=== PATIENT | male | born 1945 | race Caucasian/White ===

== ENCOUNTER 2021-02-23 16:09 | Inpatient (IN) ==
[2021-02-23] MEDS ORDERED: ONDANSETRON 4 MG/2 ML VIAL IV STA (16:58)
[2021-02-23] MEDS ORDERED: SODIUM CHLORIDE 0.9% 1,000 ML IV STA (16:58)
[2021-02-23 18:04] LABS: Basophils % 0.2 % (0.0-0.8); Eosinophils % 0.5 % (0.00-10.9); Hematocrit 42.6 VOL% (42.0-52.0); Hemoglobin 13.7 GM/DL (14.0-18.0); Immature Granulocytes % 1.3 %; Immature Granulocytes Absolute 0.11 #; Lymphocytes # 0.8 10*3/uL (1.4-4.0); Lymphocytes % 9.2 % (21.2-54.2); Mean Corpuscular HGB Conc 32.2 GM/DL (32-36); Mean Corpuscular Volume 88.2 FL (87-102); Mean Platelet Volume 9.5 FL (9.6-12.0); Monocytes % 5.5 % (1.7-12.7); Neutrophils % 83.3 % (38.7-73.9); Platelet Count 186 T/CUMM (130-400); Red Blood Count 4.83 MC/CUMM (3.8-5.5); Red Cell Distribution Width 14.5 % (9.3-17.3); White Blood Count 8.6 T/CUMM (4-12)
[2021-02-23 18:11] LABS: Bacteria,Urine Occasional /HPF (Few); Bilirubin,Urine Negative (Negative); Blood, Urine Negative (Negative); Glucose,Urine (UA) >=500 mg/dL (Negative); Ketones,Urine 80 mg/dL (Negative); Mucus,Urine Occasional /LPF (Occasional); Nitrite,Urine Negative (Negative); Protein,Urine Negative; Urine Appearance CLEAR (Clear); Urine Color BLUE (Yellow); Urine Specific Gravity 1.026 (1.001-1.035); Urine Urobilinogen < 2.0 EU/DL (0.2-1.0)
[2021-02-23 18:15] LABS: INR 1.1; PT Patient Result 12.4 SECS (10.5-12.0); Partial Thromboplastin Time 26.9 SECS (23.9-33.8)
[2021-02-23 18:21] LABS: Alanine Aminotransferase 20 U/L (16-61); Albumin 3.4 G/DL (3.4-5.0); Alkaline Phosphatase 680 U/L (45-117); Amylase 52 U/L (25-115); Aspartate Amino Transferase 10 U/L (0-37); Blood Urea Nitrogen 21 MG/DL (7-18); Calcium 9.5 MG/DL (8.5-10.1); Carbon Dioxide 20 MMOL/L (21-32); Estimated Glom Filtration Rate 74 ML/MIN; Glucose 101 MG/DL (74-106); Osmolality,Calculated 279.5 MOS/KG (273-304); Potassium 3.9 MMOL/L (3.5-5.1); Sodium 139 MMOL/L (136-145); Total Protein 7.4 G/DL (6.4-8.2)
[2021-02-23] MEDS ORDERED: DEXTROSE 50% 25 GM/50 ML VIAL IV PRN (19:59)
[2021-02-23] MEDS ORDERED: SIMETHICONE CHEW 125 MG TABLET PO PRN (19:59)
[2021-02-23] MEDS ORDERED: DOCUSATE SODIUM 100 MG CAPSULE PO PRN (19:59)
[2021-02-23] MEDS ORDERED: GLUCAGON 1 MG VIAL IM PRN (19:59)
[2021-02-23] MEDS: SODIUM CHLORIDE 0.9% 1,000 ML IV SCH ×2 (21:00→23:10)
[2021-02-23] MEDS: INSULIN REGULAR 100 UNIT/ML SUBCUT SCH (22:21)
[2021-02-24 05:58] LABS: Basophils % 0.3 % (0.0-0.8); Eosinophils % 0.5 % (0.00-10.9); Hematocrit 40.7 VOL% (42.0-52.0); Hemoglobin 12.8 GM/DL (14.0-18.0); Immature Granulocytes % 1.3 %; Immature Granulocytes Absolute 0.11 #; Lymphocytes % 11.8 % (21.2-54.2); Mean Corpuscular HGB Conc 31.4 GM/DL (32-36); Mean Corpuscular Volume 91.3 FL (87-102); Mean Platelet Volume 9.4 FL (9.6-12.0); Monocytes % 6.8 % (1.7-12.7); Neutrophils % 79.3 % (38.7-73.9); Platelet Count 167 T/CUMM (130-400); Red Blood Count 4.46 MC/CUMM (3.8-5.5); Red Cell Distribution Width 14.4 % (9.3-17.3); White Blood Count 8.7 T/CUMM (4-12)
[2021-02-24] MEDS: SODIUM CHLORIDE 0.9% 1,000 ML IV SCH ×3 (06:16→15:02)
[2021-02-24 06:19] LABS: Calcium 9.3 MG/DL (8.5-10.1); Osmolality,Calculated 282.3 MOS/KG (273-304); Potassium 4.5 MMOL/L (3.5-5.1); Risk Ratio 3.17; Thyroid Stimulating Hormone 1.36 uIU/ml (0.358-3.74); VLDL Cholesterol 18.6 MG/DL
[2021-02-24] MEDS: INSULIN REGULAR 100 UNIT/ML SUBCUT SCH ×4 (08:08→20:42)
[2021-02-24] MEDS: ONDANSETRON 4 MG/2 ML VIAL IV PRN (08:52)
[2021-02-24] MEDS: PANTOPRAZOLE 40 MG TABLET PO SCH (09:05)
[2021-02-24] MEDS ORDERED: ALPRAZolam 0.25 MG TABLET PO PRN (15:17)
[2021-02-24] MEDS ORDERED: tiZANidine 4 MG TABLET PO PRN (15:17)
[2021-02-24] MEDS ORDERED: HYDROmorphone 2 MG/1 ML VIAL IV PRN (15:18)
[2021-02-24] MEDS: LACTATED RINGERS 1,000 ML IV SCH (17:48)
[2021-02-24] MEDS: TAMSULOSIN 0.4 MG CAPSULE PO SCH (20:38)
[2021-02-24] MEDS: CARBIDOPA/LEVODOPA 25-100 MG TABLET PO SCH (20:39)
[2021-02-25] MEDS: LACTATED RINGERS 1,000 ML IV SCH ×2 (03:32→16:16)
[2021-02-25 06:22] LABS: Basophils % 0.2 % (0.0-0.8); Eosinophils # 0.1 10*3/uL (0.0-0.87); Eosinophils % 1.5 % (0.00-10.9); Hematocrit 35.6 VOL% (42.0-52.0); Hemoglobin 11.4 GM/DL (14.0-18.0); Immature Granulocytes % 0.8 %; Immature Granulocytes Absolute 0.07 #; Lymphocytes # 0.9 10*3/uL (1.4-4.0); Lymphocytes % 11.1 % (21.2-54.2); Mean Corpuscular Volume 88.6 FL (87-102); Mean Platelet Volume 9.5 FL (9.6-12.0); Monocytes % 6.8 % (1.7-12.7); Neutrophils % 79.6 % (38.7-73.9); Platelet Count 153 T/CUMM (130-400); Red Blood Count 4.02 MC/CUMM (3.8-5.5); Red Cell Distribution Width 14.6 % (9.3-17.3); White Blood Count 8.4 T/CUMM (4-12)
[2021-02-25 06:41] LABS: Calcium 8.5 MG/DL (8.5-10.1); Osmolality,Calculated 274.7 MOS/KG (273-304); Potassium 3.7 MMOL/L (3.5-5.1)
[2021-02-25] MEDS ORDERED: MAGNESIUM SULF RIDER 4 GM/100 ML PREMIX IV PRN (07:16)
[2021-02-25] MEDS ORDERED: MAGNESIUM SULF RIDER 2 GM/50 ML PREMIX IV PRN (07:16)
[2021-02-25] MEDS: INSULIN REGULAR 100 UNIT/ML SUBCUT SCH ×4 (08:12→20:54)
[2021-02-25] MEDS ORDERED: MELOXICAM 7.5 MG TABLET PO SCH (09:00)
[2021-02-25] MEDS ORDERED: BREXPIPRAZOLE 1 MG PO SCH (09:00)
[2021-02-25] MEDS: SERTRALINE 100 MG TABLET PO SCH (09:21)
[2021-02-25] MEDS: PANTOPRAZOLE 40 MG TABLET PO SCH (09:22)
[2021-02-25] MEDS: TAMSULOSIN 0.4 MG CAPSULE PO SCH ×2 (09:22→20:54)
[2021-02-25] MEDS: ONDANSETRON 4 MG/2 ML VIAL IV PRN (09:22)
[2021-02-25] MEDS: BICALUTAMIDE 50 MG TABLET PO SCH (09:22)
[2021-02-25] MEDS: ATORVASTATIN 20 MG TABLET PO SCH (09:22)
[2021-02-25] MEDS: CARBIDOPA/LEVODOPA 25-100 MG TABLET PO SCH ×3 (09:22→20:54)
[2021-02-25] MEDS ORDERED: TOBRAMYCIN INJ 80 MG in SODIUM CHLORIDE 0.9% 100 ML IV ONE (12:00)
[2021-02-26] MEDS: LACTATED RINGERS 1,000 ML IV SCH ×3 (01:00→19:16)
[2021-02-26] MEDS ORDERED: LIDOCAINE 2% TOP JELLY 20 ML VIAL INTRAURETH ONE (06:05)
[2021-02-26] MEDS: INSULIN REGULAR 100 UNIT/ML SUBCUT SCH ×4 (08:11→20:43)
[2021-02-26] MEDS: BICALUTAMIDE 50 MG TABLET PO SCH (09:08)
[2021-02-26] MEDS: TAMSULOSIN 0.4 MG CAPSULE PO SCH ×2 (09:08→20:43)
[2021-02-26] MEDS: ATORVASTATIN 20 MG TABLET PO SCH (09:08)
[2021-02-26] MEDS: CARBIDOPA/LEVODOPA 25-100 MG TABLET PO SCH ×3 (09:08→20:43)
[2021-02-26] MEDS: PANTOPRAZOLE 40 MG TABLET PO SCH (09:09)
[2021-02-26] MEDS: SERTRALINE 100 MG TABLET PO SCH (09:09)
[2021-02-27] MEDS: LACTATED RINGERS 1,000 ML IV SCH ×2 (05:27→21:43)
[2021-02-27] MEDS: CARBIDOPA/LEVODOPA 25-100 MG TABLET PO SCH ×3 (08:25→20:10)
[2021-02-27] MEDS: SERTRALINE 100 MG TABLET PO SCH (08:25)
[2021-02-27] MEDS: PANTOPRAZOLE 40 MG TABLET PO SCH (08:25)
[2021-02-27] MEDS: ATORVASTATIN 20 MG TABLET PO SCH (08:25)
[2021-02-27] MEDS: TAMSULOSIN 0.4 MG CAPSULE PO SCH ×2 (08:25→20:10)
[2021-02-27] MEDS: BICALUTAMIDE 50 MG TABLET PO SCH (08:25)
[2021-02-27] MEDS: INSULIN REGULAR 100 UNIT/ML SUBCUT SCH ×4 (09:17→21:09)
[2021-02-27] MEDS: DUTASTERIDE 0.5 MG CAPSULE PO SCH (12:23)
[2021-02-27] MEDS ORDERED: AZITHROMYCIN INJ 500 MG in SODIUM CHLORIDE 0.9% 250 ML IV SCH (13:00)
[2021-02-27] MEDS ORDERED: cefTRIAXone 1,000 MG in SODIUM CHLORIDE 0.9% 100 ML IV SCH (14:00)
[2021-02-27] MEDS: ONDANSETRON 4 MG/2 ML VIAL IV PRN (14:53)
[2021-02-28] MEDS: LACTATED RINGERS 1,000 ML IV SCH ×3 (03:26→23:42)
[2021-02-28] MEDS: ONDANSETRON 4 MG/2 ML VIAL IV PRN ×2 (03:26→17:08)
[2021-02-28 06:01] LABS: Alanine Aminotransferase < 6 U/L (16-61); Albumin 2.7 G/DL (3.4-5.0); Alkaline Phosphatase 605 U/L (45-117); Aspartate Amino Transferase 10 U/L (0-37); Blood Urea Nitrogen 13 MG/DL (7-18); Calcium 8.5 MG/DL (8.5-10.1); Carbon Dioxide 26 MMOL/L (21-32); Estimated Glom Filtration Rate 102 ML/MIN; Glucose 162 MG/DL (74-106); Osmolality,Calculated 276.8 MOS/KG (273-304); Potassium 3.2 MMOL/L (3.5-5.1); Sodium 137 MMOL/L (136-145); Total Protein 5.7 G/DL (6.4-8.2)
[2021-02-28] MEDS ORDERED: POTASSIUM CHLORIDE 20 MEQ TABLET PO ONE (07:15)
[2021-02-28 07:26] LABS: Basophils % 0.2 % (0.0-0.8); Eosinophils # 0.3 10*3/uL (0.0-0.87); Eosinophils % 4.2 % (0.00-10.9); Hematocrit 36.5 VOL% (42.0-52.0); Hemoglobin 11.8 GM/DL (14.0-18.0); Immature Granulocytes % 0.8 %; Immature Granulocytes Absolute 0.05 #; Lymphocytes # 0.7 10*3/uL (1.4-4.0); Lymphocytes % 11.2 % (21.2-54.2); Mean Corpuscular HGB Conc 32.3 GM/DL (32-36); Mean Corpuscular Volume 87.7 FL (87-102); Mean Platelet Volume 9.6 FL (9.6-12.0); Monocytes % 4.8 % (1.7-12.7); Neutrophils % 78.8 % (38.7-73.9); Platelet Count 131 T/CUMM (130-400); Red Blood Count 4.16 MC/CUMM (3.8-5.5); Red Cell Distribution Width 14.7 % (9.3-17.3)
[2021-02-28] MEDS: INSULIN REGULAR 100 UNIT/ML SUBCUT SCH ×4 (08:29→20:10)
[2021-02-28] MEDS: PANTOPRAZOLE 40 MG TABLET PO SCH (10:17)
[2021-02-28] MEDS: TAMSULOSIN 0.4 MG CAPSULE PO SCH ×2 (10:18→20:09)
[2021-02-28] MEDS: CARBIDOPA/LEVODOPA 25-100 MG TABLET PO SCH ×3 (10:18→20:09)
[2021-02-28] MEDS: BICALUTAMIDE 50 MG TABLET PO SCH (10:18)
[2021-02-28] MEDS: SERTRALINE 100 MG TABLET PO SCH (10:18)
[2021-02-28] MEDS: DUTASTERIDE 0.5 MG CAPSULE PO SCH (10:18)
[2021-02-28] MEDS: ATORVASTATIN 20 MG TABLET PO SCH (10:18)
[2021-03-01] MEDS: ONDANSETRON 4 MG/2 ML VIAL IV PRN ×2 (03:15→09:17)
[2021-03-01] MEDS: LACTATED RINGERS 1,000 ML IV SCH ×3 (05:39→19:22)
[2021-03-01] MEDS ORDERED: POTASSIUM CHLORIDE 20 MEQ TABLET PO ONE (07:21)
[2021-03-01] MEDS: SERTRALINE 100 MG TABLET PO SCH (09:15)
[2021-03-01] MEDS: BICALUTAMIDE 50 MG TABLET PO SCH (09:15)
[2021-03-01] MEDS: TAMSULOSIN 0.4 MG CAPSULE PO SCH ×2 (09:16→20:25)
[2021-03-01] MEDS: SULFAMETHOX/TRIMETHOPRIM 800-160 MG TABLET PO SCH ×2 (09:16→20:25)
[2021-03-01] MEDS: CARBIDOPA/LEVODOPA 25-100 MG TABLET PO SCH ×3 (09:16→20:25)
[2021-03-01] MEDS: PANTOPRAZOLE 40 MG TABLET PO SCH (09:16)
[2021-03-01] MEDS: ATORVASTATIN 20 MG TABLET PO SCH (09:19)
[2021-03-01] MEDS: DUTASTERIDE 0.5 MG CAPSULE PO SCH (09:45)
[2021-03-01] MEDS: INSULIN REGULAR 100 UNIT/ML SUBCUT SCH ×4 (09:51→20:25)
[2021-03-01] MEDS ORDERED: ZALEPLON 5 MG CAPSULE PO PRN (17:05)
[2021-03-02] MEDS: LACTATED RINGERS 1,000 ML IV SCH ×4 (00:59→19:07)
[2021-03-02] MEDS ORDERED: TOBRAMYCIN INJ 80 MG in SODIUM CHLORIDE 0.9% 100 ML IV ONE (06:00)
[2021-03-02 06:04] LABS: Calcium 8.2 MG/DL (8.5-10.1); Osmolality,Calculated 268.2 MOS/KG (273-304)
[2021-03-02] MEDS: INSULIN REGULAR 100 UNIT/ML SUBCUT SCH ×4 (07:41→21:06)
[2021-03-02] MEDS ORDERED: ALBUMIN 25% 25 GM/100 ML VIAL IV ONE (08:34)
[2021-03-02] MEDS ORDERED: propofoL 200 MG/20 ML VIAL IV ONE (09:03)
[2021-03-02] MEDS ORDERED: LIDOCAINE 2% 5 ML VIAL ONE (09:03)
[2021-03-02] MEDS ORDERED: fentaNYL 100 MCG/2 ML VIAL ONE (09:03)
[2021-03-02] MEDS ORDERED: PHENYLEPHRINE 1 MG/10 ML SYRINGE IV ONE (09:19)
[2021-03-02] MEDS: PANTOPRAZOLE 40 MG TABLET PO SCH (10:53)
[2021-03-02] MEDS: SULFAMETHOX/TRIMETHOPRIM 800-160 MG TABLET PO SCH ×2 (10:53→21:06)
[2021-03-02] MEDS: SERTRALINE 100 MG TABLET PO SCH (10:53)
[2021-03-02] MEDS: ATORVASTATIN 20 MG TABLET PO SCH (10:53)
[2021-03-02] MEDS: BICALUTAMIDE 50 MG TABLET PO SCH (10:53)
[2021-03-02] MEDS: DUTASTERIDE 0.5 MG CAPSULE PO SCH (10:53)
[2021-03-02] MEDS: CARBIDOPA/LEVODOPA 25-100 MG TABLET PO SCH ×3 (10:54→21:06)
[2021-03-02] MEDS: TAMSULOSIN 0.4 MG CAPSULE PO SCH ×2 (10:54→21:06)
[2021-03-02] MEDS ORDERED: MINERAL OIL ENEMA 133 ML BOTTLE RECTAL ONE (16:31)
[2021-03-03] MEDS: LACTATED RINGERS 1,000 ML IV SCH (06:25)
[2021-03-03 08:18] LABS: Calcium 8.7 MG/DL (8.5-10.1); Osmolality,Calculated 268.4 MOS/KG (273-304)
[2021-03-03] MEDS: INSULIN REGULAR 100 UNIT/ML SUBCUT SCH ×2 (08:31→10:37)
[2021-03-03] MEDS ORDERED: POLYETHYLENE GLYCOL POWDER 17 GM PACK PO SCH (09:00)
[2021-03-03] MEDS: ONDANSETRON 4 MG/2 ML VIAL IV PRN (09:13)
[2021-03-03] MEDS: BICALUTAMIDE 50 MG TABLET PO SCH (09:14)
[2021-03-03] MEDS: CARBIDOPA/LEVODOPA 25-100 MG TABLET PO SCH (09:15)
[2021-03-03] MEDS: PANTOPRAZOLE 40 MG TABLET PO SCH (09:15)
[2021-03-03] MEDS: DUTASTERIDE 0.5 MG CAPSULE PO SCH (09:15)
[2021-03-03] MEDS: SULFAMETHOX/TRIMETHOPRIM 800-160 MG TABLET PO SCH (09:15)
[2021-03-03] MEDS: SERTRALINE 100 MG TABLET PO SCH (09:15)
[2021-03-03] MEDS: ATORVASTATIN 20 MG TABLET PO SCH (09:15)
[2021-03-03] MEDS: TAMSULOSIN 0.4 MG CAPSULE PO SCH (09:15)
[2021-03-03 12:03] VITALS: BP 107/64
== END 2021-03-03 14:38 | disposition home health service (06) | DRG 715 ==
LOC: EDUNIT# → EDBD → N.ED 16:09 → N.EDINP 19:20 → INTOOBSV 19:20 → N.TELES 22:45
PROVIDERS: ADMIT Internal Medicine; ATTEND Internal Medicine